=== PATIENT | female | born 1960 | race Caucasian/White ===

== ENCOUNTER 2022-03-30 08:36 | Observation (INO) ==
[2022-03-30 09:52] LABS: Basophils % 0.3 %; Eosinophils # 0.1 K/mcL (0.0-0.6); Eosinophils % 1.1 %; Hematocrit 40.9 % (35.3-44.9); Hemoglobin 13.4 g/dL (11.5-15.4); Immature Granulocytes % 0.2 % (0-4); Lymphocytes # 1.4 K/mcL (0.6-4.6); Lymphocytes % 22.8 %; Mean Corpuscular HGB Conc 32.8 g/dL (31.6-35.5); Mean Corpuscular Hemoglobin 28.7 pg (28.0-33.3); Mean Corpuscular Volume 87.6 fL (83.0-100.0); Mean Platelet Volume 10.8 fL (9.4-12.4); Monocytes # 0.6 K/mcL (0.0-1.3); Monocytes % 10.3 %; Platelet Count 280 K/mcL (140-400); Red Blood Count 4.67 M/mcL (3.82-4.97); Red Cell Distribution Width 14.2 % (11.5-14.5); Segmented Neutrophils % 65.3 %; White Blood Count 6.1 K/mcL (4.3-11.1)
[2022-03-30 09:59] LABS: INR 1.1; Prothrombin Time 12.1 Seconds (9.4-12.1)
[2022-03-30 10:02] LABS: Activated Partial Thrombo Time 39.5 Seconds (26.0-36.0)
[2022-03-30 10:10] LABS: BUN/Creatinine Ratio 17 (6-26); Blood Urea Nitrogen 10 mg/dL (6-20); Calcium 9.4 mg/dL (8.6-10.3); Carbon Dioxide 26 mEq/L (23-29); Chloride 107 mEq/L (98-107); Glucose 104 mg/dL (70-105); Osmolality,Calculated 289 (280-300); Potassium 3.9 mEq/L (3.5-5.1); Sodium 140 mEq/L (136-145); Troponin I < 0.03 ng/mL (< 0.04)
[2022-03-30] MEDS ORDERED: Iopamidol - 370 500 ML MLS IVP ONE (10:28)
[2022-03-30 10:46] LABS: Alanine Aminotransferase 21 Units/L (7-52); Albumin 4.5 g/dL (3.5-5.7); Albumin/Globulin Ratio 1.6 (1.1-2.2); Alkaline Phosphatase 106 Units/L (34-104); Aspartate Amino Transferase 14 Units/L (13-39); Bilirubin,Direct 0.1 mg/dL (0.0-0.2); Bilirubin,Indirect 0.3 mg/dL (0.0-1.0); Bilirubin,Total 0.4 mg/dL (0.3-1.0); Globulin 2.9 g/dL (2.4-3.5); Lipase 20 Units/L (11-82); Magnesium 2.3 mg/dL (1.6-2.6); Total Protein 7.4 g/dL (6.4-8.9)
[2022-03-30] MEDS ORDERED: Naloxone 0.4 MG/ML INJ IVP PRN ×2 (12:30)
[2022-03-30] MEDS ORDERED: Aspirin 325 MG TABLET PO ONE (12:31)
[2022-03-30] MEDS ORDERED: Nitroglycerin 0.4 MG TAB.SUBL SL ONE (13:07)
[2022-03-30 13:08] LABS: Chol/HDL Ratio 3.4 (0-4.9); Cholesterol 188 mg/dL (< 200); HDL Cholesterol 55 mg/dL (40-59); LDL Cholesterol,Calculated 113 mg/dL (< 100); Triglycerides 99 mg/dL (< 150)
[2022-03-30 14:05] LABS: Estimated Average Glucose 126 mg/dl
[2022-03-30] MEDS: *HR* Heparin 5,000 UNIT/ML VIAL SQ SCH (16:58)
[2022-03-31] MEDS: *HR* Heparin 5,000 UNIT/ML VIAL SQ SCH (05:58)
[2022-03-31] MEDS ORDERED: Regadenoson 0.4 MG/5 ML SYRINGE IVP ONE (06:35)
[2022-03-31] MEDS ORDERED: BuPROPion XL (24 HR) 150 MG TABLET PO SCH (09:00)
[2022-03-31] MEDS ORDERED: Aspirin 81 MG TAB.CHEW PO SCH (09:00)
[2022-03-31] MEDS ORDERED: lisinopriL 20 MG TABLET PO SCH (09:00)
[2022-03-31] MEDS ORDERED: GI Cocktail 40 ML EACH PO ONE (12:09)
[2022-03-31 15:00] VITALS: BP 141/71; PULSE 76; TEMP 97.6; O2SAT 99
== END 2022-03-31 16:22 | disposition home or self-care (01) ==
LOC: 3BNU 08:36 → EMEROOARM 08:36 → SUATTDRO 13:38 → 3BNU 14:27
PROVIDERS: ADMIT Pharmacist; ATTEND Nurse Practitioner